=== PATIENT | female | born 1950 ===

== ENCOUNTER 2022-09-28 18:06 | Emergency (ER) | payer OTHER ==
[~2022-09-28] VITALS: Ht 149.9 cm; Wt 59.0 kg
[2022-09-28] MEDS ORDERED: INVOKAMET 150-1 EACH PO (18:28)
[2022-09-28] MEDS ORDERED: XARELTO20 MG PO (18:28)
[2022-09-28] MEDS ORDERED: GLIPIZIDE XL2.5 MG PO (18:29)
[2022-09-28] MEDS ORDERED: LANTUS SOL100 UNIT/1 (18:30)
== END 2022-09-28 21:30 | disposition home or self-care (01) ==
LOC: ER 18:06
DX: M54.9 Dorsalgia, unspecified (principal); Z88.0 Allergy status to penicillin; Z88.6 Allergy status to analgesic agent